=== PATIENT | male | born 1990 | race African-American/Black ===

== ENCOUNTER 2018-06-07 15:26 | Emergency (ER) | payer BC, OTHER ==
[~2018-06-07] VITALS: Ht 154.9 cm; Wt 95.3 kg
[2018-06-07 15:27] VITALS: BP 134/86
[2018-06-07] MEDS ORDERED: IBUPROFEN 400400 M2 PO (15:32)
[2018-06-07] MEDS ORDERED: NORFLEX100 MG PO (15:46)
[2018-06-07] MEDS ORDERED: MOBIC7.5 MG PO (15:46)
== END 2018-06-07 16:04 | disposition home or self-care (01) ==
LOC: ER 15:26
DX: S29.012A Strain of muscle and tendon of back wall of thorax, initial encounter (principal); M62.830 Muscle spasm of back; X58.XXXA Exposure to other specified factors, initial encounter; Y93.89 Activity, other specified; Y92.89 Other specified places as the place of occurrence of the external cause; Y99.8 Other external cause status